=== PATIENT | male | born 1985 | race Caucasian/White ===

== ENCOUNTER 2019-04-25 18:12 | Emergency (ER) | payer OTHER, SELFPAY ==
[2019-04-25 18:18] VITALS: BP 177/111; PULSE 108; RESP 16; TEMP 36.8; O2SAT 98; BMI 28.8
--- NOTE | 2019-04-25 19:13 | ED_ITS ---
HPI - Extremity Injury (Upper) <JACE Wells - Last Filed: 04/25/19 21:45> General Chief Complaint: Extremity Injury, Upper Stated Complaint: slipped on ice hit head and left shoulder/neck Time Seen by Provider: 04/25/19 18:28 Source: patient Mode of arrival: Ambulatory History of Present Illness HPI narrative: 33-year-old male presents emergency department after a fall this morning. He states he was walking from his car to his work when he slipped on ice, he states he closed his eyes before he fell and hit the back of his head, he states he bounced right up after the fall and walked in to work to o'clock in. Patient states his friend pulled up in another car and has some a the area on this know where he slipped, his friend did not witness the fall but states 20 minutes past before the patient walked back out to his car from work. The patient states after he fell he walked into work, clocked in, filled his water bottle, and microwaved his breakfast. Patient states that that should not have taken 20 minutes and is worried that he may have had a memory lapse at that point. However, patient remembers feeling his water bottle and micro waving his breakfast. He did state that throughout the day he had a mild 3/10 headache and felt increased fatigue and fuzziness throughout the day. Patient states he called multiple nurse lines which recommended he be evaluated. Patient was seen on the clinic and was told to come to the emergency department for further evaluation. Patient also reports left-sided back pain that is worse with palpation. He states he believes he landed on the left side of his back. He denies any midline neck pain but states the left side of his neck is slightly sore and stiff. Patient denies any vomiting, nausea, abdominal pain, chest pain, dizziness, vision changes, double vision, blurry vision, light sensitivity, chest pain, or shortness of breath. Related Data Allergies Allergy/AdvReac Type Severity Reaction Status Date / Time No Known Drug Allergies Allergy Verified 04/25/19 18:24 Review of Systems <JACE Wells - Last Filed: 04/25/19 21:45> Review of Systems Narrative: REVIEW OF SYSTEMS: GENERAL: Denies fever or chills. HENT: Reports hitting head, see HPI.. EYES: No double vision or vision loss. CARDIOVASCULAR: No chest pain or syncope. RESPIRATORY: No shortness of breath or cough. GASTROINTESTINAL: No nausea, vomiting, diarrhea, or constipation. GENITOURINARY: No flank pain or dysuria. MUSCULOSKELETAL: Complains of Left upper back pain, see HPI. INTEGUMENTARY: No rash, lesions, or pruritus. NEURO: No numbness, tingling. PSYCH: No behavior or mood changes. Patient History <Thais JACE Ayala - Last Filed: 04/25/19 21:45> Medical History No significant social history (Acute) tobacco type: smokeless tobacco alcohol intake frequency: 3 or more drinks per day Alcohol type: beer Substance Use Type: marijuana Exam <ThaisJACE Knott - Last Filed: 04/25/19 21:45> Initial Vital Signs Initial Vital Signs: Vital Signs Temperature 98.3 F 04/25/19 18:18 Pulse Rate 108 H 04/25/19 18:18 Respiratory Rate 16 04/25/19 18:18 Blood Pressure 177/111 H 04/25/19 18:18 Pulse Oximetry 98 04/25/19 18:18 PHYSICAL EXAMINATION: GENERAL: Well groomed, alert, and cooperative. Answers questions promptly and appropriately. Vital signs noted. HENT: Normocephalic, atraumatic. EYES: PERRLA, EOMIs, symmetrical, sclera white, no periorbital swelling. CARDIOVASCULAR: S1 and S2 sounds normal. Regular rate and rhythm, no murmurs, clicks, or bruits. No pedal edema. RESPIRATORY: Normal respiratory rate, trachea midline, airway patent. No stridor, nasal flaring or accessory muscle use. Lungs are clear in all cobian. MUSCULOSKELETAL: Tenderness to upper left trapezius muscle and left sternocleidomastoid. No spinal , rib, or scapular tenderness. Normal gait and coordination. Equal tone and mass bilaterally. No spinal deformities. EXTREMITIES: CMS intact. SKIN: Warm, dry, soft, appropriate color for ethnicity. No lesions, rashes, or wounds. NEURO: Alert and Oriented X 3. No sensory deficits. CN III-XIII intact. Upper and lower light touch sensation intact and equal bilaterally. PSYCH: Appropriate affect and mood. <Jama Coats MD - Last Filed: 04/26/19 04:22> Initial Vital Signs Initial Vital Signs: Vital Signs Temperature 98.3 F 04/25/19 18:18 Pulse Rate 108 H 04/25/19 18:18 Respiratory Rate 16 04/25/19 18:18 Blood Pressure 177/111 H 04/25/19 18:18 Pulse Oximetry 98 04/25/19 18:18 Scores <JACE Wells - Last Filed: 04/25/19 21:45> GCS [place] coma scale eye opening: Spontaneous [place] coma scale verbal response: Orientated [place] coma scale motor response: Obey commands [place] coma scale total score: 15 Course <JACE Wells - Last Filed: 04/25/19 21:45> Course Course Narrative: Patient was hemodynamically stable throughout the emergency department stay. He reported decreased pain after administration of Tylenol ibuprofen. Orders Ordered: Discontinued Medications Acetaminophen (Tylenol) 975 mg PO NOW ONE Stop: 04/25/19 19:07 Last Admin: 04/25/19 19:17 Dose: 975 mg Documented by: NADINE Ibuprofen (Advil) 400 mg PO NOW ONE Stop: 04/25/19 19:07 Last Admin: 04/25/19 19:18 Dose: 400 mg Documented by: NADINE Vital Signs Vital signs: Vital Signs - 8 hr 04/25/19 18:18 Temperature 98.3 F Pulse Rate 108 H Respiratory Rate 16 Blood Pressure 177/111 H Pulse Oximetry 98 <Jama Coats MD - Last Filed: 04/26/19 04:22> Orders Ordered: Discontinued Medications Acetaminophen (Tylenol) 975 mg PO NOW ONE Stop: 04/25/19 19:07 Last Admin: 04/25/19 19:17 Dose: 975 mg Documented by: NADINE Ibuprofen (Advil) 400 mg PO NOW ONE Stop: 04/25/19 19:07 Last Admin: 04/25/19 19:18 Dose: 400 mg Documented by: NADINE Vital Signs Vital signs: Vital Signs - 8 hr 04/25/19 18:18 Temperature 98.3 F Pulse Rate 108 H Respiratory Rate 16 Blood Pressure 177/111 H Pulse Oximetry 98 MDM - Extremity Injury (Upper) <JACE Wells - Last Filed: 04/25/19 21:45> Medical Records Attestation: I reviewed the patient's medical records. Lab Data Attestation: I reviewed the patient's lab results. MDM Narrative Medical decision making narrative: History and examination consistent with concussion. Very little concern for cranial etiology such as brain bleed due to lack of significant symptoms such as syncope, vomiting, or severe headache. Patient's GCS is 15, he has been working throughout the day, and incident happened over 12 hours ago. Patient does not report worsening symptoms in the 12 hours. Less likely shoulder or rib fractures due to lack of palpation to these bony areas. C-spine cleared with nexus criteria. Patient was encouraged to follow up with his primary care provider in 1-2 weeks for further evaluation. He was extensively counseled about monitoring his signs for worsening symptoms such as vision changes, vomiting, dizziness or slurred speech- Patient was instructed to return emergency department immediately if these symptoms occur. Discharge Plan Departure Patient Disposition: Home Clinical Impression: Concussion Qualifiers: Encounter type: initial encounter Loss of consciousness presence/duration: without LOC Qualified Code(s): S06.0X0A - Concussion without loss of consciousness, initial encounter Discharge Date/Time: 04/25/19 19:28 Instructions: DI for Concussion Activity Restrictions/Additional Instructions: Thank you for entrusting me with your care today. As discussed, it appears you have a concussion. Please take Tylenol and ibuprofen for the next 2-3 days to help with symptoms. If your symptoms started to return such as increased headache and fatigue, please decreased activity. Your symptoms may last for 1-2 weeks. If you develops any vision changes, vomiting, loss of consciousness, additional head injury, or any other concerns, please return emergency department immediately. Follow up with your primary care provider in 1-2 weeks for further evaluation if symptoms continue. Stand Alone Forms: Work Release Note
[2019-04-25] MEDS: ACETAMINOPHEN 325 MG TABLET 975 MG PO (19:17)
[2019-04-25] MEDS: IBUPROFEN 400 MG TABLET PO (19:18)
== END 2019-04-25 19:28 | disposition home or self-care (01) ==
PROVIDERS: Emergency Provider Nurse Practitioner
DX: S06.0X0A Concussion without loss of consciousness, initial encounter (principal); W00.0XXA Fall on same level due to ice and snow, initial encounter; Y99.0 Civilian activity done for income or pay
CPT/HCPCS: 99283